=== PATIENT | female | born 2000 | race Caucasian/White ===

== ENCOUNTER 2019-02-07 11:03 | Emergency (ER) | payer OTHER ==
[~2019-02-07] VITALS: Ht 167.6 cm; Wt 59.0 kg
[2019-02-07 11:27] LABS: URINE BILIRUBIN NEGATIVE (Negative); URINE BLOOD 2+ (Negative); URINE CLARITY SL CLOUDY; URINE COLOR YELLOW; URINE GLUCOSE-RANDOM* NEGATIVE (Negative); URINE KETONES NEGATIVE (Negative); URINE LEUKOCYTES-REFLEX TRACE (Negative); URINE PROTEIN (DIPSTICK) NEGATIVE (Negative); URINE SPECIFIC GRAVITY 1.015 (1.005-1.035); URINE UROBILINOGEN 0.2 E.U./dl (0.2-1.0)
[2019-02-07 11:30] LABS: URINE NITRITE-REFLEX POSITIVE (Negative)
[2019-02-07] MEDS ORDERED: NEXPLANON68 MG SUBQ (11:37)
[2019-02-07 11:47] LABS: CASTS None Seen /LPF (None Seen); CRYSTALS None Seen /LPF (None Seen); SQUAMOUS >10 Many /LPF (0-3); URINE RBC 0-2 Rare /HPF (0-2); URINE WBC-REFLEX 0-5 Rare /HPF (0-5)
[2019-02-07 12:08] LABS: ABSOLUTE NEUTROPHILS 5.2 thou/uL (1.4-8.2); BASOPHILS 0.3 % (0.0-2.0); EOSINOPHILS 0.4 % (0.0-3.0); HEMATOCRIT 40.7 % (37.0-47.0); HEMOGLOBIN 13.8 gm/dL (12.0-15.0); LYMPHOCYTES 13.2 % (24.0-44.0); MCH 30.9 pg (26.0-34.0); MCHC 33.9 g/dL (28.0-37.0); MCV 91.2 fL (80.0-100.0); MONOCYTES 7.2 % (1.0-8.0); PLATELET COUNT 264 thou/uL (150-400); POLYS 78.9 % (36.0-66.0); RBC 4.46 mil/uL (4.20-5.00); RDW 12.4 % (10.5-14.5); WBC 6.6 thou/uL (4.0-11.0)
[2019-02-07 12:13] LABS: CALCIUM 9.3 mg/dL (8.5-10.1); CREATININE 0.9 mg/dL (0.6-1.0); POTASSIUM 3.6 mmol/L (3.5-5.1)
[2019-02-07 12:19] LABS: ALBUMIN 4.3 g/dL (3.4-5.0); TOTAL BILIRUBIN 0.7 mg/dL (<0.1-1.0); TOTAL PROTEIN 7.6 g/dL (6.4-8.2)
[2019-02-07] MEDS ORDERED: ONDANSETRON HCL4 M2 PO (14:29)
[2019-02-07] MEDS ORDERED: KEFLEX500 M1 PO (14:29)
[2019-02-07] MEDS ORDERED: CARAFATE 1 GM TA1 G1 PO (14:29)
[2019-02-07 16:50] VITALS: BP 111/57
== END 2019-02-07 16:50 | disposition home or self-care (01) ==
LOC: ER 11:03
PROVIDERS: Emergency Medicine; Physician Assistant
DX: N39.0 Urinary tract infection, site not specified (principal); R11.2 Nausea with vomiting, unspecified; R10.33 Periumbilical pain; R10.31 Right lower quadrant pain; Z87.11 Personal history of peptic ulcer disease